=== PATIENT | male | born 1990 | race Caucasian/White ===

== ENCOUNTER 2023-03-13 01:30 | Emergency (ER) | payer OTHER ==
[~2023-03-13] VITALS: Ht 175.3 cm; Wt 122.5 kg
[2023-03-13 01:35] VITALS: BP 153/99
--- NOTE | 2023-03-13 01:38 | NUR ---
TO LOBBY A/W BED AMBULATORY
[2023-03-13] MEDS ORDERED: MORPHINE SULFATE 4 MG/ML SYR IVP ONE (02:30)
[2023-03-13] MEDS ORDERED: KETOROLAC 30 MG/ML VIAL IVP ONE ×2 (02:30→04:25)
[2023-03-13] MEDS ORDERED: NACL 0.9% 1,000 ML IV ONE (02:30)
[2023-03-13 02:38] LABS: APPEARANCE,URINE SL CLOUDY (CLEAR); BILIRUBIN,URINE NEGATIVE (NEGATIVE); BLOOD, URINE 3+ (NEGATIVE); COLOR,URINE YELLOW (YELLOW); LEUKOCYTE ESTERASE ,URINE NEGATIVE (NEGATIVE); NITRITE, URINE NEGATIVE (NEGATIVE); PH,URINE 5.5 (5.0-9.0); UGLUCOSE NEGATIVE (NEGATIVE)
[2023-03-13 02:38] LABS: BASOPHILS % (AUTO) 0.8 % (0.0-2.0); EOSINOPHILS % (AUTO) 0.9 % (0.0-4.0); HEMATOCRIT 42.8 % (36-52); HEMOGLOBIN 14.8 g/dL (12.0-18.0); LYMPHOCYTES % (AUTO) 25.5 % (20.5-51.1); MEAN CORPUSCULAR HEMOGLOBIN 30 pg (27-31); MEAN CORPUSCULAR HGB CONC 35 g/dL (33-37); MEAN CORPUSCULAR VOLUME 85.9 fL (80-94); MONOCYTES # (AUTO) 0.3 K/uL (0.8-1.0); MONOCYTES % (AUTO) 8.7 % (1.7-9.3); NEUTROPHILS # (AUTO) 2.6 K/uL (1.8-7.7); NEUTROPHILS % (AUTO) 64.1 % (42.2-75.2); PLATELET COUNT (AUTO) 187 K/uL (140-450); RED BLOOD CELL COUNT(AUTO) 4.99 MIL/uL (4.20-6.10); RED CELL DISTRIBUTION WIDTH 13.5 % (11.6-13.7)
[2023-03-13 02:52] LABS: RBC,URINE 11-20 (MOD) /HPF (0-5)
[2023-03-13 02:53] LABS: YEAST,URINE Few /HPF (None Seen)
[2023-03-13 03:01] LABS: ALBUMIN 3.8 g/dL (3.4-5.0); ANION GAP 12.5 (8-16); CARBON DIOXIDE 26.1 mmol/L (21-32); CREATININE 1.1 mg/dL (0.6-1.3); POTASSIUM 3.6 mmol/L (3.5-5.1); TOTAL BILIRUBIN 0.3 mg/dL (0.0-1.0)
--- NOTE | 2023-03-13 04:01 | NUR ---
Per pt, due to bypass surgery, pt was told by PCP not to take ibuprofren and medications similar and pt refused toradol at this time. ERMD was made aware.
--- NOTE | 2023-03-13 04:25 | NUR ---
Pt c/o 07/09 pain and ERMD made aware. Per pt, bypass surgery was in 2017, ERMD notified and pt agreeable to take toradol at this time.
--- NOTE | 2023-03-13 05:36 | NUR ---
Pt noted resting comfortably at this time, rise and fall of chest noted, no s/s pain or discomfort.
--- NOTE | 2023-03-13 05:42 | NUR ---
Pt taken to CT
[2023-03-13] MEDS ORDERED: NAPR-54 PO (06:48)
[2023-03-13 06:52] VITALS: BP 132/81
--- NOTE | 2023-03-13 06:52 | NUR ---
D/C BY DR.KWAW JORGE LUIS [facility]CCAIN
== END 2023-03-13 06:52 | disposition home or self-care (01) ==
LOC: MED 01:30
DX: R10.84 Generalized abdominal pain (principal); R11.2 Nausea with vomiting, unspecified; Z79.899 Other long term (current) drug therapy; Z98.84 Bariatric surgery status
CPT/HCPCS: 36415; 74176; 80053; 81001; 85025; 87086; 96361; 96374; 96375; 99285; J1885; J2270; J7030